=== PATIENT | male | born 1995 | race Caucasian/White ===

== ENCOUNTER → 2017-12-24 | Outpatient (CLI) | payer BC ==
[~2017-12-24] MED LIST: ALBUAER INH; AMPH15CA7 PO; AMPH30CA3 PO
[2017-12-24 12:48] LABS: HEMATOCRIT 40.3 % (42-52); HEMOGLOBIN 14.2 g/dL (14.0-18.0); MEAN CELL VOLUME 85.9 fL (80-100); MEAN CORPUSCULAR HEMOGLOBIN 30.3 pg (25-34); MEAN CORPUSCULAR HGB CONC 35.2 g/dl (32-36); MEAN PLATELET VOLUME 10.5 fL (7.4-10.4); PLATELET COUNT 253 K/uL (130-400); RED CELL DISTRIBUTION WIDTH CV 12.5 % (11.5-14.5); WHITE BLOOD COUNT 5.74 K/uL (4.8-10.8)
[2017-12-24 13:15] LABS: POTASSIUM 3.9 mmol/L (3.5-5.1)
== END | disposition home or self-care (01) ==
LOC: C.LAB 12:12
PROVIDERS: ATTEND Dentist Oral and Maxillofacial Surgery
DX: M26.02 Maxillary hypoplasia (principal); M26.03 Mandibular hyperplasia